=== PATIENT | female | born 1935 | race Caucasian/White ===

== ENCOUNTER → 2019-05-18 | Outpatient (CLI) | payer MEDICARE, BC ==
--- NOTE | 2019-05-25 09:38 | MY ---
INDICATION: Cancer screening. MAMMOGRAPHY: Two-view bilateral digital screening 2-D mammography with breast tomosynthesis and computer aided detection was obtained 05/18/2019 and compared with 04/25/2015 and earlier images, as well as 04/05/2014 and 03/17/2013. Scattered areas of fibroglandular density are noted. Vascular as well other benign appearing calcification is noted. No other significant interval change, dominant mass lesions, pathologic calcifications, skin thickening or dimpling could be identified to suggest malignancy. IMPRESSION: 1. Mammography negative for malignancy. Yearly screening mammography recommended for follow up. 2. Vascular calcifications are present which may be associated with atherosclerotic heart disease-correlate clinically. Category 1, negative. MTDD
== END ==
LOC: FB.DI 11:04
PROVIDERS: ATTEND Family Medicine
DX: Z12.31 Encounter for screening mammogram for malignant neoplasm of breast (principal); R92.1 Mammographic calcification found on diagnostic imaging of breast
CPT/HCPCS: 77063; 77067

== ENCOUNTER 2021-10-02 12:39 | Emergency (ER) | payer MEDICARE, BC ==
[2021-10-02] MEDS ORDERED: Sodium Chloride 0.9% 10 ML Syringe FLUSH PRN (13:17)
[2021-10-02] MEDS ORDERED: Furosemide 20 MG/2 ML VIAL IVPUSH STA (14:12)
== END 2021-10-02 15:20 | disposition home or self-care (01) ==
LOC: FB.ED 12:39
DX: R06.02 Shortness of breath (principal); R60.0 Localized edema; Z79.82 Long term (current) use of aspirin; Z79.899 Other long term (current) drug therapy; Z20.822 Contact with and (suspected) exposure to COVID-19
CPT/HCPCS: 36415; 71045; 80053; 83880; 84484; 85025; 85610; 85730; 93005; 93010; 96374; 99283; 99285-25; J1940; J3490; U0002

== ENCOUNTER 2022-09-16 10:19 | Emergency (ER) | payer MEDICARE, BC ==
[2022-09-16 11:09] LABS: ESTIMATED GFR 49 mL/min (>60)
[2022-09-16 14:49] VITALS: BP 141/71; PULSE 52
== END 2022-09-16 12:25 | disposition home or self-care (01) ==
LOC: FB.ED 10:19
DX: I11.0 Hypertensive heart disease with heart failure (principal); I50.9 Heart failure, unspecified; I25.2 Old myocardial infarction; J44.9 Chronic obstructive pulmonary disease, unspecified; Z79.82 Long term (current) use of aspirin; Z79.899 Other long term (current) drug therapy
CPT/HCPCS: 36415; 71045; 80053; 83880; 84484; 85025; 93005; 99285